=== PATIENT | female | born 1950 | race Caucasian/White ===

== ENCOUNTER 2022-02-12 10:38 | Outpatient (CLI) | payer MEDICARE, OTHER ==
[2022-02-12] MEDS ORDERED: Iopamidol 300 61% 30 ML VIAL ONE (11:00)
[2022-02-12] MEDS ORDERED: Sodium Chloride 0.9% (PF) 10 ML VIAL ONE (11:00)
[2022-02-12] MEDS ORDERED: Lidocaine 1% PF 5 ML VIAL ONE (11:00)
[2022-02-12] MEDS ORDERED: EPINEPHrine 1 MG/ML VIAL ONE (11:00)
== END 2022-02-12 10:39 | disposition home or self-care (01) ==
LOC: RAD 10:38
PROVIDERS: ATTEND Orthopaedic Surgery
DX: M19.011 Primary osteoarthritis, right shoulder (principal); S42.294A Other nondisplaced fracture of upper end of right humerus, initial encounter for closed fracture; M75.121 Complete rotator cuff tear or rupture of right shoulder, not specified as traumatic
CPT/HCPCS: 23350; 73040; 73201; J0171; Q9967